=== PATIENT | male | born 1985 | race Two or more races ===

== ENCOUNTER 2022-09-14 13:50 | Emergency (ER) | payer MEDICAID ==
[~2022-09-14] VITALS: Ht 175.3 cm; Wt 72.6 kg
[2022-09-14] MEDS ORDERED: VITAMINS PO (14:41)
[2022-09-14] MEDS ORDERED: IV NORMAL SALINE 500 ML BAG IV ONE (14:45)
--- NOTE | 2022-09-14 14:51 | NUR ---
Patient taken for CT Scan.
--- NOTE | 2022-09-14 15:00 | NUR ---
covid swab collected and sent to lab
[2022-09-14 15:11] LABS: MEAN CORPUSCULAR HEMOGLOBIN 30.2 uug (23.8-33.4); MEAN CORPUSCULAR VOLUME 87.8 fL (73.0-96.2); PLATELET COUNT (AUTO) 206 K/uL (152-348)
[2022-09-14 15:29] LABS: CREATININE 0.8 mg/dL (0.6-1.3); POTASSIUM 3.5 mmol/L (3.5-5.1)
[2022-09-14] MEDS ORDERED: NAPR-1192 PO (16:42)
--- NOTE | 2022-09-14 17:08 | NUR ---
Patient discharged to home in stable condition. Written and verbal after care instructions given. Patient verbalizes understanding of instructions. Stressed follow up or return to ER for worsening s/s.
[2022-09-14 17:09] VITALS: BP 118/80
== END 2022-09-14 17:09 | disposition home or self-care (01) ==
LOC: ER 13:53
DX: R51.9 Headache, unspecified (principal); Z79.899 Other long term (current) drug therapy; Z20.822 Contact with and (suspected) exposure to COVID-19
CPT/HCPCS: 99284; 96360; 70450; 87426; 80048; 85025; 85730; 36415; J7040; A4663

== ENCOUNTER 2025-03-21 22:45 | Emergency (ER) | payer BC, MEDICAID ==
[~2025-03-21] VITALS: Ht 172.7 cm; Wt 64.9 kg
[~2025-03-21 22:45] MED LIST: NAPR-1192 PO; VITAMINS PO
[2025-03-22] MEDS ORDERED: ONDANSETRON ODT 4 MG TAB.RAPDIS ONE (03:15)
[2025-03-22] MEDS ORDERED: HYDROMORPHONE 1 MG/1 ML DISP.SYRIN ONE (03:16)
[2025-03-22] MEDS: HYDROMORPHONE 1 MG/1 ML DISP.SYRIN IM ONE (03:19)
[2025-03-22] MEDS: ONDANSETRON ODT 4 MG TAB.RAPDIS SL ONE (03:19)
[2025-03-22 03:40] VITALS: BP 132/68
[2025-03-22] MEDS ORDERED: KETO10TA2 PO (06:00)
[2025-03-22 06:06] VITALS: BP 136/60; O2SAT 98
== END 2025-03-22 10:21 | disposition home or self-care (01) ==
LOC: ER 22:50
DX: M54.2 Cervicalgia (principal); R10.A0 Flank pain, unspecified side; M25.519 Pain in unspecified shoulder; V89.2XXA Person injured in unspecified motor-vehicle accident, traffic, initial encounter; Y93.89 Activity, other specified; Y92.410 Unspecified street and highway as the place of occurrence of the external cause; Y99.9 Unspecified external cause status
CPT/HCPCS: 99285; 96372; 70450; 73030; 72125; 72131; J1171; A4606; A4663; Q0162